=== PATIENT | male | born 1965 | race Caucasian/White ===

== ENCOUNTER 2020-06-13 20:17 | Emergency (ER) | payer OTHER ==
[~2020-06-13] VITALS: Ht 165.1 cm; Wt 77.0 kg
[2020-06-13 21:27] LABS: HEMATOCRIT 41.9 % (39.0-50.0); HEMOGLOBIN 13.8 g/dl (14.0-18.0); IMMATURE GRANULOCYTES 0.4 % (0.0-5.0); MEAN CELL VOLUME 94.6 fL CALC (80.0-100.0); MEAN CORPUSCULAR HGB 31.2 pG CALC (26.0-32.0); MEAN CORPUSCULAR HGB CONC 32.9 g/dL CAL (32.0-36.0); NEUT# 10.02 thou/uL (1.82-7.42); RED BLOOD COUNT 4.43 mill/uL (4.70-6.10); RED CELL DISTRI WIDTH 11.9 % (11.5-15.5)
[2020-06-13] MEDS ORDERED: LAMICTAL200 M1 PO (21:38)
[2020-06-13] MEDS ORDERED: LEXAPRO20 MG PO (21:38)
[2020-06-13] MEDS ORDERED: PRAVASTATIN SOD20 MG PO (21:40)
[2020-06-13] MEDS ORDERED: GABAPENTIN400 M2 PO (21:40)
[2020-06-13] MEDS ORDERED: PROTONIX40 M4 (21:42)
[2020-06-13] MEDS ORDERED: MELOXICAM15 MG PO (21:43)
[2020-06-13 22:47] VITALS: BP 151/89
[2020-06-13] MEDS ORDERED: TORADOL PO (22:47)
[2020-06-13] MEDS ORDERED: ORPHENADRINE100 MG PO (22:47)
== END 2020-06-13 22:47 | disposition home or self-care (01) | DRG 103 ==
LOC: ED 20:17
PROVIDERS: Emergency Medicine
DX: R51.9 Headache, unspecified (principal); M51.9 Unspecified thoracic, thoracolumbar and lumbosacral intervertebral disc disorder

== ENCOUNTER 2020-09-14 12:11 | Emergency (ER) | payer OTHER ==
[~2020-09-14] VITALS: Ht 165.1 cm; Wt 76.0 kg
[~2020-09-14 12:11] MED LIST: LAMICTAL200 M1 PO; LEXAPRO20 MG PO; MELOXICAM15 MG PO; ORPHENADRINE100 MG PO; PRAVASTATIN SOD20 MG PO; PROTONIX40 M4; TORADOL PO
[2020-09-14] MEDS ORDERED: BUPROPION HCL75 MG PO ×2 (12:46→13:11)
[2020-09-14] MEDS ORDERED: CITALOPRAM20 MG PO ×2 (12:47→13:11)
[2020-09-14] MEDS ORDERED: PROTONIX40 M2 PO (12:48)
[2020-09-14] MEDS ORDERED: GABAPENTIN400 M2 PO (12:48)
[2020-09-14] MEDS ORDERED: TRAMADOL HYDROC50 M1 PO (13:09)
[2020-09-14] MEDS ORDERED: LAMICTAL200 M1 PO (13:11)
[2020-09-14 13:20] VITALS: BP 132/98
== END 2020-09-14 13:20 | disposition home or self-care (01) | DRG 159 ==
LOC: ED 12:11
DX: K02.9 Dental caries, unspecified (principal); Z76.0 Encounter for issue of repeat prescription; K21.9 Gastro-esophageal reflux disease without esophagitis; E78.00 Pure hypercholesterolemia, unspecified; F41.9 Anxiety disorder, unspecified; G43.909 Migraine, unspecified, not intractable, without status migrainosus; F17.210 Nicotine dependence, cigarettes, uncomplicated